=== PATIENT | male | born 1985 | race Two or more races ===

== ENCOUNTER 2022-03-06 08:00 | Emergency (ER) | payer SELFPAY ==
[~2022-03-06] VITALS: Ht 167.6 cm; Wt 65.8 kg
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
[2022-03-06] MEDS ORDERED: OLANZAPINE 10 MG VIAL IM ONE ×2 (08:16→08:30)
[2022-03-06] MEDS ORDERED: LORAZEPAM INJ 2 MG/ML VIAL ONE (08:17)
--- NOTE | 2022-03-06 08:26 | NUR ---
URINE COLLECTED AND SENT
[2022-03-06] MEDS ORDERED: LORAZEPAM INJ 2 MG/ML VIAL IM ONE (08:30)
[2022-03-06 08:33] LABS: BASOPHILS % (AUTO) 0.6 % (0.0-2.0); EOSINOPHILS % (AUTO) 0.6 % (0.0-6.0); HEMATOCRIT 35 % (39-51); HEMOGLOBIN 11.1 g/dL (13.5-17.5); LYMPHOCYTES # (AUTO) 0.9 K/uL (0.8-4.8); LYMPHOCYTES % (AUTO) 16.5 % (20.0-44.0); MEAN CORPUSCULAR HGB CONC 31 g/dl (31.0-36.0); MEAN CORPUSCULAR VOLUME 75 fL (80-96); MONOCYTES # (AUTO) 0.2 K/uL (0.1-1.30); MONOCYTES % (AUTO) 4.4 % (2.0-12.0); NEUTROPHILS # (AUTO) 4.3 K/uL (1.8-8.9); NEUTROPHILS % (AUTO) 77.9 % (43.0-81.0); PLATELET COUNT (AUTO) 354 K/uL (150-450); WHITE BLOOD COUNT (AUTO) 5.6 K/uL (4.3-11.0)
[2022-03-06 08:48] LABS: BILIRUBIN,URINE NEGATIVE (NEGATIVE); COLOR,URINE YELLOW (YELLOW); LEUKOCYTE ESTERASE ,URINE NEGATIVE (NEGATIVE); NITRITE, URINE NEGATIVE (NEGATIVE); PROTEIN,URINE TRACE mg/dl (NEGATIVE); UGLUCOSE NEGATIVE (NEGATIVE); UROBILINOGEN,URINE 0.2 EU/dL (0.2)
[2022-03-06 09:00] LABS: BACTERIA,URINE None seen /HPF (None Seen); RBC,URINE 0-2 /HPF (0-2); SQUAMOUS EPITHELIAL CELL,UR Rare /HPF (None Seen); WBC,URINE 0-2 /HPF (0-3)
[2022-03-06 09:00] LABS: ALANINE AMINOTRANSFERASE 21 U/L (12-78); ALCOHOL, BLOOD < 3 mg/dL (0-0); ALKALINE PHOSPHATASE 95 U/L (46-116); ASPARTATE AMINOTRANSFERASE 19 U/L (15-37); BILIRUBIN,DIRECT 0.1 mg/dL (0.0-0.2); BILIRUBIN,TOTAL 0.3 mg/dL (0.2-1.0); CALCIUM, SERUM 9.1 mg/dL (8.5-10.1); CARBON DIOXIDE 33 mmol/L (21-32); CHLORIDE 104 mmol/L (98-107); GLUCOSE 93 mg/dL (74-106); POTASSIUM 3.5 mmol/L (3.5-5.1); SODIUM SERUM 141 mmol/L (136-145); TOTAL PROTEIN, SERUM 7.5 g/dL (6.4-8.2); UREA NITROGEN, BLOOD 14 mg/dL (7-18)
[2022-03-06 09:12] LABS: ACETAMINOPHEN 0 ug/ml (10-30)
--- NOTE | 2022-03-06 18:04 | NUR ---
pt sleeping, responsive to tactile stimuli. on monitor. vss. will continue to monitor.
--- NOTE | 2022-03-07 00:46 | NUR ---
PATIENT A, OX3. AMBULAATORY WITH SSTABL EAITS. PO INTAKE TOLERATD WELL. NO N/V. VSS. DENIED ANY PAIN OR DISCOMFORT. DENIED SI/HI. REPORTED FEELING WELL AND WILLING TO LEAVE. MADE AWARE.
[2022-03-07 01:51] VITALS: BP 114/67
--- NOTE | 2022-03-07 01:51 | NUR ---
Patient discharged to home in stable condition. Written and verbal after care instructions given. Patient verbalizes understanding of instruction.
== END 2022-03-07 01:52 | disposition home or self-care (01) ==
LOC: ER 08:11 → EDBD 08:11 → ER 03-07 01:52
DX: F29 Unspecified psychosis not due to a substance or known physiological condition (principal); F15.10 Other stimulant abuse, uncomplicated
CPT/HCPCS: 99291; 96372 ×2; 70450; 85025; 80048; 80076; 81001; 36415; 80143; 80320; 80307; J2060; J3490; G0480